=== PATIENT | female | born 1980 | race Caucasian/White ===

== ENCOUNTER 2017-09-09 07:16 | Emergency (ER) | payer MEDICAID ==
[~2017-09-09] VITALS: Ht 172.7 cm; Wt 98.0 kg
[2017-09-09 07:32] VITALS: BP 118/90
[2017-09-09] MEDS ORDERED: LORazepam 1MG TABLET PO ONE (08:00)
[2017-09-09] MEDS ORDERED: LORazepam 1MG TABLET ONE (08:09)
== END 2017-09-09 10:39 | disposition home or self-care (01) ==
LOC: ED 07:50
DX: T76.21XA Adult sexual abuse, suspected, initial encounter (principal); L03.031 Cellulitis of right toe; X58.XXXA Exposure to other specified factors, initial encounter; Y93.89 Activity, other specified; Y92.89 Other specified places as the place of occurrence of the external cause; Y99.8 Other external cause status
CPT/HCPCS: 99283

== ENCOUNTER 2017-09-12 08:19 | Emergency (ER) | payer MEDICAID ==
[~2017-09-12] VITALS: Ht 172.7 cm; Wt 115.0 kg
[2017-09-12 10:30] LABS: HCG UR SG 1.024 (1.003-1.030)
[2017-09-12 10:31] LABS: CULTURE INDICATED? YES; MICROSCOPIC INDICATED
[2017-09-12 11:01] VITALS: BP 136/72
== END 2017-09-12 11:03 | disposition home or self-care (01) ==
LOC: ED 09:25
DX: R30.0 Dysuria (principal); F31.9 Bipolar disorder, unspecified
CPT/HCPCS: 81001; 81025; 87086; 93005; 99285

== ENCOUNTER 2017-09-13 21:17 | Emergency (ER) | payer MEDICAID ==
[~2017-09-13] VITALS: Ht 175.3 cm; Wt 120.5 kg
[2017-09-13] MEDS ORDERED: ACETAMINOPHEN 500 MG TABLET ONE (21:43)
[2017-09-13 21:49] LABS: BASOPHILS # (AUTO) 0.11 x10^3/uL (0-0.1); BASOPHILS % (AUTO) 1 % (0-1); EOSINOPHILS # (AUTO) 0.06 x10^3/uL (0-0.4); EOSINOPHILS % (AUTO) 1 % (1-7); LYMPHOCYTES # (AUTO) 3.29 x10^3/uL (1-3.4); LYMPHOCYTES % (AUTO) 34 % (22-44); MD NO; MEAN CORPUSCULAR HEMOGLOBIN 27.1 pg (27.0-34.8); MEAN CORPUSCULAR VOLUME 82.2 fL (80-100); MEAN PLATELET VOLUME 8.3 fL (7.4-10.4); MONOCYTES # (AUTO) 0.54 x10^3/uL (0.2-0.8); MONOCYTES % (AUTO) 6 % (2-9); NEUTROPHILS # (AUTO) 5.84 x10^3/uL (1.8-6.8); NEUTROPHILS % (AUTO) 59 % (42-75); PLATELET COUNT 317 x10^3/uL (130-400); RED BLOOD COUNT 4.28 x10^6/uL (3.82-5.3); RED CELL DISTRIBUTION WIDTH 14.2 % (9.6-15.2)
[2017-09-13] MEDS ORDERED: SODIUM CHLORIDE 0.9% 1,000ML IVBOLUS ONE (22:00)
[2017-09-13] MEDS ORDERED: ACETAMINOPHEN 500 MG TABLET PO ONE (22:00)
[2017-09-13 22:01] LABS: ALBUMIN 3.3 g/dL (3.4-5.0); ANION GAP 8 mmol/L (5-15); CALCIUM 8.5 mg/dL (8.5-10.1); CHLORIDE 105 mmol/L (98-107)
[2017-09-13 22:06] LABS: CREATININE 0.79 mg/dL (0.55-1.02)
[2017-09-13 23:35] LABS: AMPHETAMINE SCREEN, URINE Negative (Negative); BARBITURATE SCREEN, URINE Negative (Negative); BENZODIAZEPINE SCREEN, URINE Negative (Negative); CANNABINOID SCREEN, URINE Negative (Negative); COCAINE SCREEN, URINE Negative (Negative); METHADONE SCREEN, URINE Negative (Negative); OPIATE SCREEN, URINE Negative (Negative)
[2017-09-13 23:46] VITALS: BP 124/81
== END 2017-09-13 23:49 | disposition home or self-care (01) ==
LOC: ED 22:05
DX: R55 Syncope and collapse (principal); F17.200 Nicotine dependence, unspecified, uncomplicated; E11.9 Type 2 diabetes mellitus without complications
CPT/HCPCS: 36415; 80048; 80307; 82040; 84703; 85025; 96360; 99284; J7030